=== PATIENT | female | born 2000 | race Two or more races ===

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

== ENCOUNTER 2020-02-08 18:29 | Emergency (ER) | payer OTHER ==
[2020-02-08 18:41] VITALS: BP 133/73; PULSE 82; TEMP 97.2; BMI 20.2
--- NOTE | 2020-02-08 19:09 | PDOC ---
History of Present Illness - General Chief Complaint: Rash Stated Complaint: RASH/ ALLERGIC REACTION Time Seen by Provider: 02/08/20 18:47 History Source: Patient Exam Limitations: No Limitations - History of Present Illness Initial Comments: 02/08/20 19:19 HISTORY OF PRESENT ILLNESS: 19-year-old woman denies medical history presents emergency department for evaluation of rash to her upper body. She reports approximately 5 days ago she had a single lesion to her left hip and then began to have rash starting at the neckline working its way down across the back and chest. She reports the rash is currently itching for which she has not taken any medication. She denies any fevers, chills, shortness of breath, sore throat, swelling, change in diet, medication, cosmetics, lotions or cleaning products. No recent travel or sick contacts. PAST MEDICAL HISTORY: Denies past medical history SURGICAL HISTORY: Denies ALLERGIES: No known drug allergies REVIEW OF SYSTEMS General/Constitutional: Denies fever or chills. Denies weakness, weight change. HEENT: Denies change in vision. Denies ear pain or discharge. Denies sore throat. Cardiovascular: Denies chest pain or shortness of breath. Respiratory: Denies cough, wheezing, or hemoptysis. Gastrointestinal: Denies nausea, vomiting, diarrhea or constipation. Denies rectal bleeding. Genitourinary: Denies dysuria, frequency, or change in urination. Musculoskeletal: Denies joint or muscle swelling or pain. Denies neck or back pain. Skin and breasts: See HPI Neurologic: Denies headache, vertigo, loss of consciousness, or loss of sensation. Psychiatric: Denies depression or anxiety. Endocrine: Denies increased thirst. Denies abnormal weight change. Hematologic/Lymphatic: Denies anemia, easy bleeding, or history of blood clots. Allergic/Immunologic: Denies hives or skin allergy. Denies latex allergy. PHYSICAL EXAM General Appearance: Well-appearing, appropriately dressed. No apparent distress, no intoxication. Integumentary: Ovular erythematous raised rash with lesions that are subcentimeter in nature. One single larger ovoid lesion which is similar in appearance as the rest of the lesions present to the left hip. This lesion has faint crusting present. Neurologic: manager operational II-XII intact. Fully oriented, alert. Appropriate mood/affect. Motor strength 5/5. No appreciable EOM palsy, facial droop or sensory deficit. Past History - Medical History Allergies/Adverse Reactions: Allergies Allergy/AdvReac Type Severity Reaction Status Date / Time No Known Allergies Allergy Verified 02/08/20 18:40 Home Medications: Ambulatory Orders Phenazopyridine HCl [Pyridium -] 200 mg PO ONCE #2 tablet 11/19/18 Sulfamethoxazole/Trimethoprim [Bactrim Ds -] 1 tab PO BID #20 tablet 11/19/18 Mometasone Furoate 45 gm TP BID #1 tube 02/08/20 COPD: No - Reproductive History Is Patient Now?: No - Psycho-Social/Smoking History Smoking History: Never smoked Information on smoking cessation initiated: Yes - Substance Abuse Hx (Audit-C & DAST Scrn) How often the patient has a drink containing alcohol: Never Score: In Men: 4 or > Positive; In Women: 3 or > Positive: 0 Screen Result (Pos requires Nsg. Audit-10AR): Negative In the last yr the pt used illegal drug/Rx for NonMed reason: No Score: Yes response is considered Positive: 0 Screen Result (Positive result requires Nsg. DAST-10): Negative *Physical Exam - Vital Signs Last Vital Signs Temp Pulse Resp BP Pulse Ox 97.2 F L 82 19 133/73 9 L 02/08/20 18:38 02/08/20 18:38 02/08/20 18:38 02/08/20 18:38 02/08/20 18:38 Medical Decision Making - Medical Decision Making 02/08/20 19:16 A/P: 19-year-old girl with rash to trunk Raised erythematous scaly rash present to trunk. One single larger lesion present to the left hip with the appearance of herald patch. Discharge home with prescription for mometasone ointment for itching and dermatology referral Portions of this note have been documented using voice recognition software. As a result, errors may occur in the middle school counselor process. Effort has been made to correct all grammatical and middle school counselor error, but some may have been missed which may produce sporadic inaccurate middle school counselor or nonsensical phrases. Discharge - Discharge Information Problems reviewed: Yes Clinical Impression/Diagnosis: Pityriasis rosea Condition: Stable Disposition: HOME - Admission No - Additional Discharge Information Prescriptions: Mometasone Furoate 45 gm TP BID #1 tube - Follow up/Referral Referrals: Matthew Ponce MD [Primary Care Provider] - Joyce Rose MD [Staff Physician] - - Patient Discharge Instructions Patient Printed Discharge Instructions: Pityriasis Rosea Additional Instructions: Apply mometasone ointment to affected areas to control itching twice a day as needed. This is a self-limiting condition. That means that it will run its course and improve without any intervention. You be given a referral for dermatology. If symptoms do not improve call to schedule an appointment. Your emergency department visit is incomplete to you follow-up with your primary doctor. Return to the emergency department for any new or worsening symptoms. Thank you very much for choosing us provide your emergent healthcare needs - Post Discharge Activity
== END 2020-02-08 19:18 | disposition home or self-care (01) ==
LOC: JERFT 18:29
DX: L42 Pityriasis rosea (principal)
CPT/HCPCS: 99283-25